=== PATIENT | female | born 1965 | race African-American/Black ===

== ENCOUNTER 2016-10-03 22:51 | Emergency (ER) | payer OTHER ==
[~2016-10-03] VITALS: Ht 165.1 cm; Wt 77.1 kg
--- NOTE | 2016-10-03 23:26 | ED GI/GU/ABDOMINAL COMPLAINT ---
History of Present Illness General Chief Complaint: Abdominal Pain/Flank Pain Stated Complaint: LT ABD PAIN Source: patient Exam Limitations: no limitations Vital Signs & Intake/Output Vital Signs & Intake/Output Vital Signs Date Time Temp Pulse Resp B/P B/P Pulse O2 O2 Flow FiO2 Mean Ox Delivery Rate 10/04 0135 98.4 84 16 142/88 99 Room Air 10/03 2352 99 Room Air 10/03 2255 97.1 80 18 164/97 97 Room Air ED Intake and Output 10/04 0000 10/03 1200 Intake Total Output Total Balance Patient 170 lb Weight Allergies Coded Allergies: No Known Allergies (10/03/16) Reconcile Medications Cyclobenzaprine HCl 10 MG TABLET 1 TAB PO TID PRN MUSCLE SPASM Ibuprofen 800 MG TABLET 1 TAB PO TID PRN PAIN Triage Note: PT COMPLAINS OF L SIDE ABD /FLANK PAIN FOR THE PAST WEEK. DENIES N/V/D, OR URINARY SYMPTOMS Triage Nurses Notes Reviewed? yes ? n Is pt currently ? No Onset: Gradual Duration: week(s):, getting worse, waxing and waning Timing: recent history Quality/Severity: sharpness Location: left flank Radiation: no radiation Activities at Onset: none Modifying Factors: Worsens With: palpation. Associated Symptoms: abdominal pain HPI: 51 yo woman with left flank pain x 1 week. "It really hurts." She notes no dysuria, nausea, vomiting, diarrhea. She notes that her bowel movements and urination have been normal. She has no fever, chills, chest pain. Past History Travel History Traveled to [place] past 21 day No Medical History Any Pertinent Medical History? see below for history Neurological: NONE EENT: NONE Cardiovascular: NONE Respiratory: NONE Gastrointestinal: NONE Hepatic: NONE Renal: NONE Musculoskeletal: NONE Psychiatric: NONE Endocrine: NONE Blood Disorders: NONE Cancer(s): NONE DIRECTOR PRISON/Reproductive: NONE Surgical History Surgical History: none Psychosocial History What is your primary language Mozambican Tobacco Use: Never used ETOH Use: denies use Illicit Drug Use: denies illicit drug use Family History Hx Contributory? No Review of Systems Review of Systems Constitutional: Reports: no symptoms. EENTM: Reports: no symptoms. Respiratory: Reports: no symptoms. Cardiovascular: Reports: no symptoms. GI: Reports: no symptoms. Genitourinary: Reports: no symptoms. Musculoskeletal: Reports: no symptoms. Skin: Reports: no symptoms. Neurological/Psychological: Reports: no symptoms. Hematologic/Endocrine: Reports: no symptoms. Immunologic/Allergic: Reports: no symptoms. All Other Systems: Reviewed and Negative Physical Exam Physical Exam General Appearance: well developed/nourished, mild distress Head: atraumatic Eyes: Bilateral: normal appearance. Ears, Nose, Throat, Mouth: hearing grossly normal, moist mucous membrane Neck: normal inspection, supple, full range of motion, normal alignment Respiratory: normal breath sounds, chest non-tender, no respiratory distress, quiet respiration, lungs clear Cardiovascular: regular rate/rhythm Gastrointestinal: normal bowel sounds, soft, left sided abd tenderness to palpation. no rebound. no guarding. Back: normal inspection, normal range of motion, muscle spasm, no vertebral tenderness Extremities: normal range of motion Neurologic/Psych: no motor/sensory deficits, awake, alert, oriented x 3 Skin: intact, normal color, warm/dry Core Measures ACS in differential dx? No Severe Sepsis Present: No Septic Shock Present: No Progress Differential Diagnosis: appendicitis, cholecystitis, diverticulitis, gastritis, hepatitis, UTI/pyelo Plan of Care: Orders Procedure Date/time Status TROPONIN LEVEL 10/03 2254 Complete LIPASE 10/03 2254 Complete HEPATIC FUNCTION PANEL 10/03 2254 Complete CBC WITHOUT DIFFERENTIAL 10/03 2254 Complete BASIC METABOLIC PANEL 10/03 2254 Complete AMYLASE 10/03 2254 Complete EKG 10/03 2254 Active Laboratory Tests 10/03/16 2348: Anion Gap 13, Estimated GFR 58 L, BUN/Creatinine Ratio 18.0, Glucose 80, Calcium 9.9, Total Bilirubin 0.5, Direct Bilirubin 0.2, AST 27, ALT 34, Alkaline Phosphatase 104, Troponin I 0.02, Total Protein 7.8, Albumin 4.4, Amylase 67, Lipase 181, CBC w Diff NO MAN DIFF REQ, RBC 4.58, MCV 91.1, MCH 29.7, RDW 14.8 H, MPV 11.4 H, Gran % 51.4, Lymphocytes % 37.4, Monocytes % 8.3, Eosinophils % 2.1, Basophils % 0.8, Absolute Granulocytes 4.9, Absolute Lymphocytes 3.6 H, Absolute Monocytes 0.8 H, Absolute Eosinophils 0.2, Absolute Basophils 0.1, PUBS MCHC 32.6 L Diagnostic Imaging: Viewed by Me: CT Scan. Discussed w/RAD: CT Scan. Radiology Impression: abd/pelvic ct... no acute disease Initial ED EKG: normal axis, normal intervals, normal p-waves, normal QRS complex, normal sinus rhythm Comments: PATIENT: CHANTAL MARTINEZ PRESENT AGE: 51 PATIENT ACCOUNT NO: [id number] : 64 LOCATION: [facility] ORDERING PHYSICIAN: DERECK PRAJAPATI MD SERVICE DATE: 10/03/16 EXAM TYPE: CAT - CT ABD & PELVIS W/O IV CONTRAS EXAMINATION: CT ABDOMEN AND PELVIS WITHOUT CONTRAST CLINICAL INFORMATION: Left-sided pain COMPARISON: None TECHNIQUE: Multidetector volumetric imaging was performed from the superior aspect of the liver through the pubic symphysis. Sagittal and coronal reformatted images were obtained on the technologist's workstation. DLP: 348 mGy-cm FINDINGS: LUNG BASES: Trace pericardial fluid. Lung bases clear. LIVER, GALLBLADDER, AND BILIARY TREE: Probable tiny cyst centrally within the left lobe measuring 5 mm. Tiny stones without acute inflammatory changes. PANCREAS: Unremarkable. SPLEEN: Unremarkable. ADRENAL GLANDS: Unremarkable. KIDNEYS AND URETERS: The kidneys are normal in size, shape, and attenuation. No hydronephrosis, hydroureter, or calculi seen. No perinephric stranding. BLADDER: Unremarkable. GASTROINTESTINAL TRACT: The small and large bowel are unremarkable. The appendix is unremarkable. ABDOMINAL WALL: No significant hernia is appreciated. LYMPH NODES: Normal. VASCULAR: Unremarkable. PELVIC VISCERA: Unremarkable. OSSEOUS STRUCTURES: Unremarkable. IMPRESSION: No significant abnormality. No stones or obstructive uropathy. No focal findings to explain this patient's symptoms. DICTATED BY: JACQUELINE KELLEY MD DATE/TIME DICTATED:10/04/1637 LITHOPONE CHARGER:ALEJANDRA DATE/TIME TRANSCRIBED:10/04/1637 CONFIDENTIAL, DO NOT COPY WITHOUT APPROPRIATE AUTHORIZATION. <Electronically signed in Other Vendor System> SIGNED BY: JACQUELINE KELLEY MD 10/04/1644 Departure Departure Disposition: HOME OR SELF CARE Condition: Stable Clinical Impression Primary Impression: Abdominal pain Secondary Impressions: Back pain Referrals: MARLENA GONZALES MD (PCP/Family) Departure Forms: Customer Survey General Discharge Information Prescriptions: Current Visit Scripts Ibuprofen 1 TAB PO TID PRN PAIN #30 TAB Cyclobenzaprine HCl 1 TAB PO TID PRN MUSCLE SPASM #30 TAB Ref 1 Comments pt feeling better at discharge... benign labs/ekg/ct scan... pt safe for discharge and close follow up encouraged.
[2016-10-04 00:03] LABS: ABSOLUTE BASOPHIL COUNT 0.1 /CUMM (0.0-0.2); ABSOLUTE EOSINOPHIL COUNT 0.2 /CUMM (0.0-0.7); ABSOLUTE GRANULOCYTE CT 4.9 /CUMM (1.4-6.5); ABSOLUTE LYMPH COUNT 3.6 /CUMM (1.2-3.4); ABSOLUTE MONOCYTE COUNT 0.8 /CUMM (0.10-0.60); BASOPHIL % 0.8 % (0.0-2.0); EOSINOPHIL % 2.1 % (0-5); GRANULOCYTE % 51.4 % (42.2-75.2); HEMATOCRIT 41.7 % (37-47); MEAN CORPUSCULAR HGB 29.7 PG (27.0-31.0); MEAN CORPUSCULAR HGB CONC 32.6 G/DL (33.0-37.0); MEAN CORPUSCULAR VOLUME 91.1 FL (81.0-99.0); MEAN PLATELET VOLUME 11.4 FL (7.4-10.4); PLATELET COUNT 211 /CUMM (130-400); RBC DISTRIBUTION WIDTH 14.8 % (11.5-14.5); RED BLOOD CELL CT 4.58 /CUMM (4.20-5.40); WHITE BLOOD CELL COUNT 9.6 /CUMM (4.8-10.8)
--- NOTE | 2016-10-04 00:45 | CT SCAN REPORT ---
EXAMINATION: CT ABDOMEN AND PELVIS WITHOUT CONTRAST CLINICAL INFORMATION: Left-sided pain COMPARISON: None TECHNIQUE: Multidetector volumetric imaging was performed from the superior aspect of the liver through the pubic symphysis. Sagittal and coronal reformatted images were obtained on the technologist's workstation. DLP: 348 mGy-cm FINDINGS: LUNG BASES: Trace pericardial fluid. Lung bases clear. LIVER, GALLBLADDER, AND BILIARY TREE: Probable tiny cyst centrally within the left lobe measuring 5 mm. Tiny stones without acute inflammatory changes. PANCREAS: Unremarkable. SPLEEN: Unremarkable. ADRENAL GLANDS: Unremarkable. KIDNEYS AND URETERS: The kidneys are normal in size, shape, and attenuation. No hydronephrosis, hydroureter, or calculi seen. No perinephric stranding. BLADDER: Unremarkable. GASTROINTESTINAL TRACT: The small and large bowel are unremarkable. The appendix is unremarkable. ABDOMINAL WALL: No significant hernia is appreciated. LYMPH NODES: Normal. VASCULAR: Unremarkable. PELVIC VISCERA: Unremarkable. OSSEOUS STRUCTURES: Unremarkable. IMPRESSION: No significant abnormality. No stones or obstructive uropathy. No focal findings to explain this patient's symptoms.
[2016-10-04] MEDS ORDERED: IBUPROFEN800 M1 PO (01:06)
[2016-10-04] MEDS ORDERED: CYCLOBENZAPRINE10 M1 PO (01:07)
[2016-10-04 01:35] VITALS: BP 142/88
== END 2016-10-04 01:35 ==
LOC: ERH 22:51
PROVIDERS: Pediatrics
DX: R10.32 Left lower quadrant pain (principal); M54.5 Low back pain
CPT/HCPCS: 74176; 93005; 93010; 96374; J1885

== ENCOUNTER 2017-11-10 22:44 | Emergency (ER) | payer OTHER ==
[~2017-11-10] VITALS: Ht 167.6 cm; Wt 77.1 kg
[~2017-11-10 22:44] MED LIST: CYCLOBENZAPRINE10 M1 PO; IBUPROFEN600 M1 PO; IBUPROFEN800 M1 PO; PERCOCET 5-3251 EACH PO
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
[2017-11-11 01:29] VITALS: BP 175/100
--- NOTE | 2017-11-11 01:49 | RADIOLOGY REPORT ---
EXAMINATION: XR SHOULDER, LEFT CLINICAL INFORMATION: Fall, pain COMPARISON: None TECHNIQUE: Three views of the left shoulder. FINDINGS: Glenohumeral alignment appears anatomic. No acute fracture is seen. The acromioclavicular joint is intact. IMPRESSION: No acute findings.
--- NOTE | 2017-11-11 01:53 | RADIOLOGY REPORT ---
EXAMINATION: XR ELBOW, LEFT CLINICAL INFORMATION: Fall, pain COMPARISON: None TECHNIQUE: Two views of the left elbow. Per technologist report, images are best obtainable due to patient's condition. FINDINGS: Both images are in relatively lateral positioning. A joint effusion is present, raising concern for possible proximal radial fracture which is not well assessed on these images. Articular alignment on these images is grossly preserved. IMPRESSION: Suboptimal assessment due to limitations in patient positioning. Joint effusion is present, raising concern for proximal radial fracture, though the radius is not well evaluated on these images. If possible, complete series of elbow radiographs would be helpful for further evaluation.
--- NOTE | 2017-11-11 01:55 | RADIOLOGY REPORT ---
EXAMINATION: XR WRIST, LEFT CLINICAL INFORMATION: Fall, pain COMPARISON: None TECHNIQUE: Two views of the left wrist (PA and oblique). FINDINGS: Articular alignment on these views appears maintained. No acute fracture is seen. Soft tissue swelling is noted overlying the ulnar styloid. IMPRESSION: No acute fracture identified.
--- NOTE | 2017-11-11 02:12 | CT SCAN REPORT ---
EXAMINATION: NONCONTRAST HEAD CT NONCONTRAST CERVICAL SPINE CT INDICATION INFORMATION: Fall, pain COMPARISON: None TECHNIQUE: Separate noncontrast CT examinations of the head and cervical spine were performed. Coronal head CT images and coronal and sagittal cervical spine images were created at the technologist workstation. DLP: 990.28 mGy-cm FINDINGS: Head: Assessment is partially limited due to patient motion artifact. There is no appreciable acute intracranial hemorrhage or territorial infarction. No abnormal mass-effect or midline shift is seen. [place] to white matter differentiation is well preserved. No extra-axial fluid collections are identified. The ventricles are normal in size. There is no abnormal attenuation within the brain parenchyma. The osseous structures and soft tissues are normal. There is mild opacification of the ethmoid air cells. It is retention cyst is noted in the right maxillary sinus. The mastoid air cells are well-aerated. Cervical spine: There is anatomic alignment of the vertebral bodies and posterior elements. Vertebral body heights and intervertebral disc spaces are maintained. No evidence of acute fracture. No prevertebral soft tissue swelling. Visualized portions of the lung apices are unremarkable. The thyroid gland is unremarkable. IMPRESSION: 1. Head: Limited assessment due to patient motion artifact. No gross abnormality. 2. Cervical spine: No acute findings identified.
[2017-11-11] MEDS ORDERED: DICLOFENAC SODI75 M2 PO (03:01)
[2017-11-11] MEDS ORDERED: ORPHENADRINE C100 MG PO (03:01)
[2017-11-11] MEDS ORDERED: NORCO 5-325 TA1 EACH PO (03:01)
[2017-11-11] MEDS ORDERED: IBUPROFEN800 M1 PO (19:30)
== END 2017-11-11 03:10 ==
LOC: ERH 22:44
DX: S42.402A Unspecified fracture of lower end of left humerus, initial encounter for closed fracture (principal); S16.1XXA Strain of muscle, fascia and tendon at neck level, initial encounter; S80.212A Abrasion, left knee, initial encounter; M25.512 Pain in left shoulder; V29.40XA Motorcycle driver injured in collision with unspecified motor vehicles in traffic accident, initial encounter
CPT/HCPCS: 73030-LT; 73080-LT; 73110-LT; 80307; 81001; 90471; 90714; 96374; 96375; 96376; J0131; J1885; J2405